=== PATIENT | male | born 1975 | race Caucasian/White ===

== ENCOUNTER 2022-09-17 11:25 | Outpatient (REF) | payer BC, MEDICARE, SELFPAY ==
[2022-09-17 13:24] LABS: MANUAL DIFF FLAG NO
[2022-09-17 13:57] LABS: Basophils Percent Auto 0.3 % (0-2); Eosinophils Absolute Auto 0.3 X10*3/uL (0.0-0.4); Eosinophils Percent Auto 2.6 % (0-4); Hematocrit 43.1 % (42.0-52.0); Hemoglobin 15.5 g/dl (14.0-18.0); Imm Gran Abs Auto 0.06 X10*3/uL (0.00-0.03); Imm Gran Pct Auto 0.6 % (0.0-0.4); Lymphocytes Absolute Auto 2.4 X10*3/uL (1.2-4.9); Mean Corpuscular Hemoglobin 33.1 pg (27.0-33.0); Mean Corpuscular Volume 92.1 fL (80.0-98.0); Mean Platelet Volume 11.9 fL (9.4-12.4); Monocytes Absolute Auto 0.7 X10*3/uL (0.1-1.2); Monocytes Percent Auto 7.1 % (2-11); Neutrophils Absolute Auto 6.4 x10*3/uL (2.0-8.3); Neutrophils Percent Auto 65.4 % (45-73); Platelet Count 152 X10*3/uL (160-400); Red Blood Count 4.68 X10*6/uL (4.60-5.80); Red Cell Distribution Width 13.5 % (11.0-16.0); White Blood Count 9.8 X10*3/uL (4.8-10.8)
[2022-09-17 14:05] LABS: Estimated Average Glucose 94 mg/dL; Hemoglobin A1c % 4.9 %
[2022-09-17 14:37] LABS: Vitamin B12 658 pg/mL (200-900)
[2022-09-17 14:43] LABS: Alanine Aminotransferase 17 U/L (0-40); Albumin Level 4.2 g/dL (3.5-5.0); Alkaline Phosphatase 74 U/L (39-117); Anion Gap 11 (12-20); Aspartate Amino Transferase 22 U/L (5-37); Bilirubin Direct 0.4 mg/dL (0.0-0.5); Bilirubin Total 1.4 mg/dL (0.0-1.0); Blood Urea Nitrogen 10 mg/dL (9-16); Calcium 9.1 mg/dL (8.4-10.2); Carbon Dioxide 27 mmol/L (22-29); Chloride 110 mmol/L (96-108); Cholesterol 216 mg/dL; Estimated Glomerular Filt Rate > 60; Glucose Random 85 mg/dL (60-115); HDL Cholesterol 48 mg/dL; LDL Cholesterol Calculated 139 mg/dl; Potassium 3.6 mmol/L (3.3-5.1); Sodium 144 mmol/L (135-145); Total Protein 7.3 g/dL (6.5-8.0); Triglycerides 147 mg/dL
[2022-09-17 15:22] LABS: CT PCR NOT DETECTED (Not Detect.); NG PCR NOT DETECTED (Not Detect.)
[2022-09-18 04:00] LABS: Syphilis Screen Nonreactive (Nonreactive)
[2022-09-18 04:30] LABS: HBc Num1 0.07 S/CO (0.00-0.79); HBsAGNum1 0.43 S/CO (0.00-0.99); HIV AB/AG Nonreactive (Nonreactive); HIV Num 1 0.04 S/CO (0.00-0.99); Hepatitis B Core Antibody Nonreactive (Nonreactive); Hepatitis B Surface Antigen Negative (Negative); ~HepC Num1 0.12 S/CO (0.00-0.79); ~Hepatitis C Antibody Nonreactive (Nonreactive)
== END 2022-09-17 11:26 | disposition home or self-care (01) ==
LOC: HO.HHCL 11:25
PROVIDERS: Visit Provider Internal Medicine
DX: Z00.00 Encounter for general adult medical examination without abnormal findings (principal); Z11.4 Encounter for screening for human immunodeficiency virus [HIV]; K92.1 Melena; Z20.2 Contact with and (suspected) exposure to infections with a predominantly sexual mode of transmission
CPT/HCPCS: 0353U; 80048; 80061; 80076; 82607; 83036; 84443; 85025; 86704; 86780; 86803; 87340; 87389

== ENCOUNTER 2023-01-21 12:02 | Outpatient (AMB) | payer BC, MEDICARE, SELFPAY ==
--- NOTE | 2023-01-21 12:06 | A.OFFVIS_ITS ---
Intake Vital Signs 01/21/23 12:11 Height 5 ft 7 in Weight 136 lb BMI 21.3 BP 118/65 Blood Pressure Location Lt brachial Position Sitting Pulse 87 Intake Visit Reasons: Colonoscopy Screening, blood in stool Intake Note: Patient new consult for 1st pre colonoscopy screening/ Positive cologuard 2020. Patient denies any GI issues. 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 He has intermittent BRBPR when he wipes He has an excellent appetite- No cardiac or respiratory issues No nausea, vomiting, hematemesis, fever or chills PFSH Family History Mother Diabetes Father No problems noted. Social History (Updated 01/21/23 @ 12:28 by Mahsa Stone PA-C) Household Members: Family Alcohol intake: current Alcohol intake frequency: holidays/special occasions only Patient Tobacco Use Status: Current everyday Tobacco user Use of substances other than those prescribed or required for medical reasons: Yes Substance Use Type: Marijuana Current occupational status: employed Current occupation: FT Review of Systems Const All systems reviewed & are unremarkable except as noted in HPI and below Card Denies chest pain and Denies dyspnea Resp Denies dyspnea GI Denies abdominal pain, Denies change in bowel habits, Denies heartburn, Denies nausea and Reports other (Bright red blood TP when wiping) Physical Exam Vital Signs: Last Vital Signs Pulse 87 01/21/23 12:11 BP 118/65 01/21/23 12:11 BMI result Body Mass Index 21.3 Const General: cooperative and comfortable Nutritional Appearance: thin Orientation/consciousness: patient oriented x3 Limitations: no limitations Eyes Sclerae: sclerae normal Resp Effort & Inspection: normal respiratory effort and able to speak in complete sentences Auscultation: clear to auscultation bilaterally, no rales, no rhonchi and no wheezes Cardio Rate: regular rate Rhythm: regular rhythm Heart sounds: S1 normal heart sound present and S2 normal heart sound present GI Palpation (GI): Soft to palpation and nontender Auscultation: normal bowel sounds Skin General skin exam: no rashes or lesions noted Neuro General: patient oriented x3 Extrem General: Yes full ROM Psych Appearance: grossly normal and well kempt Mental Status: mental status grossly normal Speech and movement: Normal speech and movement present Affect: normal affect Attitude: cooperative Thought process: Normal thought process present Thought content: Normal thought content present Results Reviewed Results Reviewed: no anemia Assessment & Plan Assessment & Plan (1) Encounter for screening colonoscopy: Comment: Discussed procedure, risks, need for escorted due to anesthesia Code(s): Z12.11 - Encounter for screening for malignant neoplasm of colon Plan: index screening colonoscopy (2) Rectal bleeding: Comment: intermittent- no anemia-likely hemorrhoidal Code(s): K62.5 - Hemorrhage of anus and rectum Plan: HFD Rectal cream Plan index screening colonoscopy MG prep, HFD- fiber supplements Orders: Orders Colonoscopy - GI Use Only 01/21/23 Z12.11 - Encounter for screening for malignant neoplasm of colon Medications: New polyethylene glycol 3350 (Miralax) Take as directed by mouth the day before your procedure. 238 grams PO ONCE 1 day PRN 238 grams 0RF laxative effect calcium polycarbophil (Fiber Laxative (calcium polycarbophil)) 1,250 mg (2 x 625 mg) PO DAILY 30 days 60 tabs 3RF bisacodyl (Dulcolax (bisacodyl)) Day before procedure, prep day Take 4 tablets by mouth upon awakening followed by large glass of water 20 mg (4 x 5 mg) PO ONCE 1 day 4 tabs 0RF colonoscopy prep Z12.11 - Encounter for screening for malignant neoplasm of colon hydrocortisone 2.5% (Proctosol HC) 1 appl IA BEDTIME PRN 30 grams 3RF hemorrhoids Patient Instructions: index screening colonoscopy MG prep, reviewed, literature given Maintain HFD- fiber supplements Hydrocortisone cream Avoid straining Encouraged to call with questions or concerns Coding Level of Care Code New Pt Level 3 (85746) Diagnoses Encounter for screening colonoscopy Z12.11 Rectal bleeding K62.5 Time Spent (min) 30
[2023-01-21 12:11] VITALS: BP 118/65; PULSE 87; BMI 21.3
== END 2023-01-21 13:21 | disposition home or self-care (01) ==
PROVIDERS: Visit Provider Physician Assistant
DX: Z01.818 Encounter for other preprocedural examination (principal); Z12.11 Encounter for screening for malignant neoplasm of colon; K62.5 Hemorrhage of anus and rectum
CPT/HCPCS: S0285

== ENCOUNTER → 2023-01-21 12:02 | Outpatient (BNVA) | payer BC, MEDICARE, SELFPAY | PROVIDERS: Visit Provider Physician Assistant ==

== ENCOUNTER 2023-05-30 11:27 | Day surgery (SDC) | payer BC, SELFPAY ==
[2023-05-30] VITALS (12 sets, daily range): BP systolic 80–124; BP diastolic 43–68; PULSE 46–62; RESP 16–20; TEMP 36.3–36.8; O2SAT 96–100; BMI 20.5
[2023-05-30] MEDS: Lactated Ringers 1,000 ML 50 ML IVCONT (12:05)
--- NOTE | 2023-05-30 12:05 | MHC.SHP ---
Pre-Procedural Eval Section A - 24 Hr Update-Section A only Date of Service: 05/30/23 The patient is an INPATIENT: No The patient has been examined within 24 hours of the surgical procedure. The History & Physical has been completed within 30 days and I have reviewed it.: No Section B - Complete if H&P > 30 days Chief Complaint: Colon cancer screening, rectal bleeding Relevant Family History (Specify if Yes): No Relevant Social History: Tobacco Use Present Medications: see Short Stay Collaborative assessment Medical History: No relevant PMH History of Previous Operations: Relevant previous surgery/procedure and date(s) (Lt ankle surgery) Allergies: Allergies Allergy/AdvReac Type Severity Reaction Status Date / Time No Known Allergies Allergy Verified 01/21/23 12:05 Review of Systems Sugical H&P ROS: Negative: Constitution, Cardiovascular and Gastrointestinal Exam Surgical H&P Exam: Normal: Heart, Normal: Lungs, Normal: Extremities and Normal: Abdomen Plan Diagnosis/Plan: Unchanged I have reviewed the history and physical and performed a pertinent physical examination on my patient. No changes have occurred unless specified. Time Spent With Patient Time: Total time managing care of this patient today ____ minutes.
--- NOTE | 2023-05-30 12:38 | P.CONAN_ITS ---
HPI - Anesthesia Eval Consult details Narrative: for colon screen PMF Active Problems Active Problems: All Active Problems Rectal bleeding (Acute) Encounter for screening colonoscopy (Acute) Family History Family History Mother Diabetes Father No problems noted. Family history of problems with anesthesia: No Surgical History History of Problems with Anesthesia: No Social History Social History Household Members: Family Alcohol intake: current Alcohol intake frequency: holidays/special occasions only Patient Tobacco Use Status: Current everyday Tobacco user Tobacco use type: Cigarette Cigarettes Per Day: 5 Use of substances other than those prescribed or required for medical reasons: Yes Substance Use Type: Marijuana Are you DNR?: No Advance Directives: No Advance Directives Information Provided: Yes Current occupational status: employed Current occupation: FT [employer] Allergies Allergy/AdvReac Type Severity Reaction Status Date / Time No Known Allergies Allergy Verified 01/21/23 12:05 Active Medications: Current Medications Lactated Ringer's (Lr) 1,000 mls @ 50 mls/hr IVCONT .Q20H DEXTER Last Admin: 05/30/23 12:05 Dose: 50 mls/hr Exam Height,Weight and Vital Signs: Height 5 ft 7 in Weight 59.33 kg Last Vital Signs Temp 98.2 F 05/30/23 11:46 Pulse 58 05/30/23 11:46 Resp 18 05/30/23 11:46 BP 124/68 05/30/23 11:46 Pulse Ox 98 05/30/23 11:46 O2 Del Method Room Air 05/30/23 11:46 Airway Mallampati Class: II TM Dist: >3cm Neck ROM: Full Heart: rrr Lungs: cta Assessment and Plan Assessment Anesthesia Assessment: Anesthesia Plan Discussed and Chart Reviewed Final Anesthetic Review Family History of Problems with Anesthesia: No History of Problems with Anesthesia: No NPO: Yes ASA Class: II (isabellehuana daily smoker) Final Preanesthetic Review: No Changes in Pt Med Stat, Meds/Allgs Chart Rev iewed, Consent Obtained/Reviewed and Anes Risks/Benef Reviewed Patient Risk: Low Procedure Risk: Low Anesthetic Plan Anesthetic Plan: MAC: Disposition: Standard PACU
--- NOTE | 2023-05-30 13:19 | P.OP_ITS ---
Operative Note Operative Note Date of Service: 05/30/23 Narrative: COLONOSCOPY TILL CECUM WITH BIOPSIES, SNARE POLYPECTOMY, SUBMUCOSAL INJECTION AND HEMOCLIP PLACEMENT Pre-op diagnosis: Colon cancer screening (First colonoscopy). Post-op diagnosis:? Colon polyps, Diverticulosis, hemorrhoids Endoscopist:? Jayne Al MD Anesthesia:?MAC Consent: Indications for the procedure and potential complications of bleeding, perforation, reaction to medications and missed diagnosis were discussed with the patient and informed consent was obtained. Instrument: Olympus CF H 190 L variable stiffness adult colonoscope Monitoring: Vital signs and clinical assessment, intermittent blood pressure monitoring, continuous EKG monitoring, Pulse oximetry and Carbon Dioxide monitoring were done throughout the procedure. Please see anesthesia flowsheet. Colon withdrawl time was 25 minutes. Procedure: The patient was placed in the left lateral decubitis position and pre-procedure medications were administered. After a digital rectal examination of the ano-rectum, the video colonoscope was inserted into the rectum and advanced through the colon to the cecum. The colonoscope was slowly withdrawn in a retrograde panoramic fashion and the colon mucosa was carefully examined including a retroflexed view of the rectum. Findings and interventions are described below. Procedure Difficulty: without difficulty Findings: Terminal Ileum: Not evaluated Cecum: Normal Ascending Colon: Normal Transverse Colon: A 3-4 mm sessile polyp - removed with a cold biopsy Descending Colon: Normal Sigmoid Colon: A 2 x 2.5 cms elongated and ulcerated polyp with a broad base at 25 cms. Polyp was removed with a hot snare. Polypectomy site was closed with 3 hemoclips and marked by Rhonda ink. Moderate diverticulosis Rectum: Two 10 - 15 mm sessile polyps - removed with a hot snare Ano-rectum: Small internal hemorrhoids Colon preparation: Excellent. [place] Bowel Preparation Scale Right colon; 3 Transverse colon: 3 Left colon; 3 (0 = Unprepared colon segment with mucosa not seen due to solid stool that cannot be cleared. 1 = Portion of mucosa of the colon segment seen, but other areas of the colon segment not well seen due to staining, residual stool and/or opaque liquid. 2 = Minor amount of residual staining, small fragments of stool and/or opaque liquid, but mucosa of colon segment seen well. 3 = Entire mucosa of colon segment seen well with no residual staining, small fragments of stool or opaque liquid) Impression and Post Procedure Diagnosis: Colonoscopy Findings: Three medium to large sized and one small polyps were removed Moderate diverticulosis seen in the sigmoid colon Small hemorrhoids on retroflexed exam. Rectal bleeding likely from large ulcerated sigmoid colon polyp. Plan: Pt has a FU appointment on 06/12/23 with [facility]. Repeat flexible sigmoidoscopy in 4-6 months if sigmoid colon polyp is adenomatous and 10 year if polyps are hyperplastic. Above findings were reviewed with the patient and relevant handouts were given and the discharge area.
== END 2023-05-30 16:12 | disposition home or self-care (01) ==
PROVIDERS: PCP Internal Medicine; Visit Provider Internal Medicine Gastroenterology
PROC: 0DJD8ZZ Inspection of Lower Intestinal Tract, Via Natural or Artificial Opening Endoscopic (ICD-10-PCS; CPT 45378; principal; 2023-05-30 13:00)
DX: Z12.11 Encounter for screening for malignant neoplasm of colon (principal); D12.5 Benign neoplasm of sigmoid colon; D12.8 Benign neoplasm of rectum; K63.5 Polyp of colon; K57.30 Diverticulosis of large intestine without perforation or abscess without bleeding; K64.8 Other hemorrhoids; F17.210 Nicotine dependence, cigarettes, uncomplicated
CPT/HCPCS: 45385; 45380; 45381; 88305; J2704

== ENCOUNTER → 2023-05-30 11:27 | Outpatient (BNV) | payer BC, SELFPAY | PROVIDERS: PCP Internal Medicine; Visit Provider Internal Medicine Gastroenterology | DX: Z12.11 Encounter for screening for malignant neoplasm of colon (principal); D12.3 Benign neoplasm of transverse colon; D12.5 Benign neoplasm of sigmoid colon; D12.8 Benign neoplasm of rectum; K57.30 Diverticulosis of large intestine without perforation or abscess without bleeding; K64.8 Other hemorrhoids | CPT/HCPCS: 45380; 45381; 45385 ==

== ENCOUNTER 2023-07-15 13:20 | Outpatient (AMB) | payer BC, MEDICARE, SELFPAY ==
[2023-07-15 13:31] VITALS: BP 112/73; PULSE 73; BMI 19.9
--- NOTE | 2023-07-15 13:31 | A.OFFVIS_ITS ---
Vital Signs 07/15/23 13:31 Height 5 ft 7 in Weight 127 lb BMI 19.9 BP 112/73 Blood Pressure Location Lt brachial Position Sitting Pulse 73 Intake Visit Reasons: s/p colon Intake Note: Patient follow up for Colonoscopy results Patient denies any GI issues. Manager Trading Required: No Accompanied by: Self / Same As Patient Allergies No Known Allergies Allergy (Verified 01/21/23 12:05) HPI Comments Details: A 47 y/o male seen with rectal bleeding- of referred for colonoscopy-today he is here to f/u after colonoscopy with polypectomy He tolerated well-he is very appreciative to the care that he received We reviewed procedure report, pathology and recommendation He had many questions in regard to polyps- His bowels are normal scant bleeding after wiping- Appetite is good He has no nausea, vomiting, hematemesis, fever or chills PFSH Surgical History (Updated 07/11/23 @ 08:55 by Linda Spaulding) Hx of colonoscopy Family History Mother Diabetes Father No problems noted. Social History Household Members: Family Alcohol intake: current Alcohol intake frequency: holidays/special occasions only Patient Tobacco Use Status: Current everyday Tobacco user Tobacco use type: Cigarette Cigarettes Per Day: 5 Substance Use Type: Marijuana Current occupational status: employed Current occupation: FT Review of Systems Const All systems reviewed & are unremarkable except as noted in HPI and below Physical Exam Vital Signs: Last Vital Signs Pulse 73 07/15/23 13:31 BP 112/73 07/15/23 13:31 BMI result Body Mass Index 19.9 Const General: cooperative, healthy appearing, comfortable, no acute distress and anxious Nutritional Appearance: thin Limitations: no limitations Eyes Sclerae: sclerae normal Resp Effort & Inspection: normal respiratory effort and able to speak in complete sentences Skin General skin exam: no rashes or lesions noted Extrem General: Yes full ROM Psych Appearance: grossly normal and well kempt Mental Status: mental status grossly normal Speech and movement: Normal speech and movement present and Clear speech present Affect: normal affect and Animated affect present Attitude: cooperative Thought process: Normal thought process present Thought content: Normal thought content present Insight: Good insight present (Psych) Judgement: Good judgement present (Psych) Results Reviewed Results Reviewed: Impression and Post Procedure Diagnosis: Colonoscopy Findings: Three medium to large sized and one small polyps were removed Moderate diverticulosis seen in the sigmoid colon Small hemorrhoids on retroflexed exam. Rectal bleeding likely from large ulcerated sigmoid colon polyp. Plan: Pt has a FU appointment on 06/12/23 with [facility]IL[facility]. Repeat flexible sigmoidoscopy in 4-6 months if sigmoid colon polyp is adenomatous and 10 year if polyps are hyperplastic. Above findings were reviewed with the patient and relevant handouts were given and the discharge area. Dictated By: Jayne Al MD Signed By: <Electronically signed by Jayne Al MD> 05/30/23 1554 me: Mynor Lou Age/Sex: 47/M Attending: Jayne Al MD : 1975 Submitted by: Jayne Al MD Copies to: Linda Juarez MD MR #: [id number] Status: [facility] Collected: 05/30/23 Location: [facility] Received: 05/30/23 Diagnosis A. Colon, transverse, polyp, biopsy: Colonic mucosa with no specific change; no adenomatous dysplasia seen. B. Colon, labeled sigmoid polyp at 25 mm : Tubular adenoma with foci suspicious for high-grade dysplasia (see comment). C. Colon, rectal polyp: Tubular adenoma; negative for high-grade dysplasia and carcinoma. Comment: (B): There is no invasion and this adenoma lacks metastatic potential. The margin cannot be evaluated and endoscopic follow-up to ensure there is no residual lesion is warranted. Clinical History Pre-Op Dx: Colon cancer screening, rectal bleeding Post-Op Dx: Diverticulosis, hemorrhoids, polyps Microscopic Description Microscopic sections reviewed. Material Received A. Transverse colon polyp bx B. Sigmoid polyp at 25 mm C. Rectal polyp Gross Description Received in 3 parts. Part A: Received in formalin labeled ?transverse colon polyp bx? is a 0.35 cm roldan rectangular tissue fragment, submitted in toto in a cassette labeled A. Part B: Received in formalin labeled ?sigmoid polyp at 25? is a 1.2 x 1.0 x 0.45 cm congested and hemorrhagic, lobular, red-maroon polypoid portion of tissue. The resected base is inked and the specimen sectioned and entirely submitted in a cassette labeled B. Part C: Received in formalin labeled ?rectal polyp x2 (sic)? are 4 roldan and roldan- pink papular and polypoid tissue fragments ranging from 0.35 to 0.8 cm in greatest dimension. The 3 smaller tissue fragments are submitted in toto in cassette C1. The resected base of the polypoid fragment is inked and the specimen Patient: Mynor Lou Age/Sex: 47/M MR#: [id number] Page 1 of 2 Assessment & Plan Assessment & Plan (1) Adenoma determined by colorectal biopsy: Comment: Sigmoid Colon: A 2 x 2.5 cms elongated and ulcerated polyp with a broad base at 25 cms. Polyp was removed with a hot snare. Polypectomy site was closed with 3 hemoclips and marked by Rhonda ink. Moderate diverticulosis Rectum: Two 10 - 15 mm sessile polyps - removed with a hot snare OB: 1975 Submitted by: Jayne Al MD Copies to: Linda Juarez MD MR #: [id number] Status: [facility] Collected: 05/30/23 Location: [facility] Received: 05/30/23 Diagnosis A. Colon, transverse, polyp, biopsy: Colonic mucosa with no specific change; no adenomatous dysplasia seen. B. Colon, labeled sigmoid polyp at 25 mm : Tubular adenoma with foci suspicious for high-grade dysplasia (see comment). C. Colon, rectal polyp: Tubular adenoma; negative for high-grade dysplasia and c arcinoma. Comment: (B): There is no invasion and this adenoma lacks metastatic potential. The margin cannot be evaluated and endoscopic follow-up to ensure there is no residual lesion is warranted. Clinical History Pre-Op Dx: Colon cancer screening, rectal bleeding Post-Op Dx: Diverticulosis, hemorrhoids, polyps Microscopic Description Microscopic sections reviewed. Material Received A. Transverse colon polyp bx B. Sigmoid polyp at 25 mm C. Rectal polyp Code(s): D12.7 - Benign neoplasm of rectosigmoid junction Category: Medical Plan: There is no invasion and this adenoma lacks metastatic potential. The margin cannot be evaluated and endoscopic follow-scheduled 12/05/23 (2) Diverticulosis: Code(s): K57.90 - Diverticulosis of intestine, part unspecified, without perforation or abscess without bleeding Category: Medical Plan: ER protocol Foods to avoid Maintain high-fiber diet (3) Hemorrhoids: Code(s): K64.9 - Unspecified hemorrhoids Category: Medical Plan: Avoid straining Plan Flex-sig as scheduled Plan of care in detail Patient Instructions: Very pleasant 39-year-old Gent follows up after screening colonoscopy for rectal bleeding Reviewed procedure report, pathology and recommendation Opportunity for questions answered to his satisfaction Flex sig 12/05/23-Dr. Al-prep sheet has been given Reinforced importance follow through-as well as AFDR-should begin screening by age 37 (typically 10 years from diagnoses)-to include his children and biologic siblings Discussed diverticulosis/diverticulitis ER protocol Foods to avoid-nuts, seeds and corn Maintain high-fiber diet Avoid straining with hemorrhoid He is encouraged to call with any questions or concerns Coding Level of Care Code Est Pt Level 3 (83053) Diagnoses Adenoma determined by colorectal biopsy D12.7 Diverticulosis K57.90 Hemorrhoids K64.9 Time Spent (min) 25
== END 2023-07-15 14:16 | disposition home or self-care (01) ==
PROVIDERS: Visit Provider Physician Assistant
DX: D12.7 Benign neoplasm of rectosigmoid junction (principal); K57.90 Diverticulosis of intestine, part unspecified, without perforation or abscess without bleeding; K64.9 Unspecified hemorrhoids
CPT/HCPCS: 99213

== ENCOUNTER → 2023-07-15 13:20 | Outpatient (BNVA) | payer BC, MEDICARE, SELFPAY | PROVIDERS: Visit Provider Physician Assistant ==

== ENCOUNTER 2023-10-08 16:35 | Outpatient (REF) | payer BC, MEDICARE, SELFPAY | END 2023-10-08 16:36 | disposition home or self-care (01) | LOC: HO.HOSX 16:35 | PROVIDERS: Visit Provider Orthopaedic Surgery | DX: Z13.89 Encounter for screening for other disorder (principal) ==

== ENCOUNTER 2024-05-07 10:58 | Outpatient (REF) | payer BC, SELFPAY ==
[2024-05-07 14:28] LABS: TSH reflex Free T4 2.01 uIU/mL (0.32-4.0)
== END 2024-05-07 10:59 | disposition home or self-care (01) ==
LOC: HO.HHCL 10:58
PROVIDERS: Visit Provider Internal Medicine
DX: R00.2 Palpitations (principal)
CPT/HCPCS: 36415; 84443

== ENCOUNTER 2024-05-25 11:04 | Outpatient (REF) | payer BC, SELFPAY ==
--- NOTE | ~2024-05-25 | XR_ITS ---
EXAMINATION: XR HAND 3 OR MORE VIEWS RIGHT HISTORY: M79.641 - Pain in right hand COMPARISON: There are no prior studies available for comparison. FINDINGS: Three views of the right hand are submitted. Osseous mineralization is normal. There is no fracture or dislocation. The joint spaces are preserved. The soft tissues are unremarkable. XR/XR hand RT min 3V IMPRESSION: Unremarkable examination of the right hand. Electronically signed by: Wayne Sawyer MD 05/25/2024 01:44 PM EDT
--- OUTSIDE RECORDS SUMMARY | 2024-05-25 14:20 | XMS_ITS | Clinical Summary ---
Author Organization [employer] Address [address] [facility] 7t [place] [address] Care Team Providers Care Street Worker Name Role Phone Linda Juarez MD Primary [...] organization. Date Type Department Care Team Description 05/25/2024 Orders Only [facility] External Provider, [facility] 05/17/2024 Telephone [facility] [place] [address] Linda Juarez MD Appointment Request 05/03/2024 11:15 AM EDT Telemedicine [address] [address] Linda Juarez MD Anxiety with depression (Primary Dx); Palpitations; Right hand pain; Positive colorectal cancer screening using Cologuard test 05/03/2024 Travel 04/29/2024 Telephone [facility] [place] [address] Linda Juarez MD Call Back Request (/) 03/04/2024 1:15 PM EST Office Visit [facility] [place] [address] Linda Juarez MD Anxiety with depression (Primary [...] Description 07/23/2024 9:45 AM EDT Office Visit [facility]IC[facility] [address] [place], [place] [phone] Jeevan Zapata MD [address] [place], [place] [phone] 09/13/2024 1:00 PM EDT Office Visit [facility] OPTOMETRY [address] [place] [address] Schuyler, Jeri, OD [address] [place], [place] [phone] Health Maintenance Due Date Last Done Comments CT Colonography 1974 Colonoscopy 1974 FIT 1974 Sigmoidoscopy 1974 Family Planning (PISQ) 1989 Hepatitis B Vaccines (1 of 3 - 19+ 3-dose series) 1993 Pneumococcal Vaccine: Pediatrics (0 to 5 Years) and At-Risk Patients (6 to 49) Years) (1 of 2 - PCV) 1993 FOBT 08/27/2022 08/27/2021, 07/0 09/2021, 07/31/2021, Additional history exists COVID-19 Vaccine (3 [...] Procedure Name Priority Date/Time Associated Diagnosis Comments XR HAND 3+ VIEWS RIGHT Routine 05/25/2024 11:40 AM EDT TSH W/REFLEX TO FT4 Routine 05/07/2024 1 1:00 AM EDT Palpitations HEPATITIS C ANTIBODY REFLEX Routine 09/17/2022 11:37 AM EDT HIV ANTIBODY/ANTIGEN ([place] DPH) Routine 09/17/2022 11:37 AM EDT LIPID PANEL, STANDARD Routine 09/17/2022 11:37 AM EDT Health care maintenance HM FIT DNA/COLOGUARD CANCER SCREENING Routine 08/27/2021 12:00 AM EDT from Last 3 Months or Most Recently Relevant to Health Maintenance Results * XR Hand 3+ Views Right (05/25/2024 11:40 AM EDT) Anatomical Region Laterality Modality Upper Extremities, Hand Right [facility] 05/25/2024 11:4 0 AM EDT Narrative 05/25/2024 1:47 PM EDT ? [facility] ? [address] ?[place] [address] ?XRay Report ? Signed ? Patient: Franquiz,Mynor ?MR#: [id number] ?? [id number] ? : 1975 ?Acct:[id number] ? Age/Sex: 48 / M ?ADM Date: 05/25/24 ? Loc: HO.HOSX ? Attending Dr: Shelia Baptiste MD ? Ordering Physician: Shelia Baptiste MD ?? Date of Service: 05/25/24 ?? Procedure(s): XR hand RT min 3V ?? Accession Number(s): [id number] ? cc: Linda Juarez MD; Shelia Baptiste MD ? EXAMINATION: ??XR HAND 3 OR MORE VIEWS RIGHT ? HISTORY: M79.641 - Pain in right hand ? COMPARISON: There are no prior studies available for comparison. ? FINDINGS: ? Three views of the right hand are submitted. ??Osseous mineralization is ?? normal. ??There is no fracture or dislocation. ??The joint spaces are ?? preserved. ??The soft tissues are unremarkable. ? XR/XR hand RT min 3V ?? IMPRESSION: ? Unremarkable examination of the right hand. ? Electronically signed by: ??Wayne Sawyer MD ??05/25/2024 01:44 PM EDT ?? RP ? Dictated By: ?Wayne Sawyer MD ? Signed By: ?<Electronically signed by Wayne Sawyer MD in OV> ?05/25/24 1344 ? DD/ 1140 ? TD/TT: 05/25/24 1144 ? Courier Delivery Driver: ? Procedure Note Alessio Hercules - 05/25/2024 [facility] [address] [place] [address] [address] [place] [address] XRay Report Signed Patient: Ni Lou#: [id number] : 1975Acct:[id number] Age/Sex: 48 / MADM Date: 05/25/24 Loc: [facility] Attending Dr: Shelia Baptiste MD Ordering Physician: Shelia Baptiste MD Date of Service: 05/25/24 Procedure(s): XR hand RT min 3V Accession Number(s): [id number] cc: Linda Juarez MD; Shelia Baptiste MD EXAMINATION: XR HAND 3 OR MORE VIEWS RIGHT HISTORY: M79.641 - Pain in right hand COMPARISON: There are no prior studies available for comparison. FINDINGS: Three views of the right hand are submitted. Osseous mineralization is normal. There is no fracture or dislocation. The joint spaces are preserved. The soft tissues are unremarkable. XR/XR hand RT min 3V IMPRESSION: Unremarkable examination of the right hand. Electronically signed by: Wayne Sawyer MD 05/25/2024 01:44 PM EDT Dictated By: Wayne Sawyer MD Signed By: <Electronically signed by Wayne Sawyer MD in OV> 05/25/24 1344 DD/ 1140 TD/TT: 05/25/24 1144 Courier Delivery Driver: [facility] External Provider IMG XR PROCEDURES Final Result * TSH W/Reflex to FT4 (05/07/2024 11:00 AM EDT) TSH reflex Free T4 2.01 0.32 - 4.0 uIU/mL [facility] Blood Venous blood specimen / Unknown 05/07/2024 11:00 AM EDT 05/07/2024 1:41 PM EDT Linda Hernández MD LAB BLOOD ORDERABLES Final Result Performing Organization Address [facility] Co de Phone Number [facility] [address] [place] [phone] * Hepatitis C Antibody Reflex (09/17/2022 11:37 AM EDT) Hepatitis C Antibody Nonreactive Nonreactive [facility] Comment:Antibodies to HCV no t detected; does not exclude early acuteHCV infection. 09/17/2022 11:3 7 AM EDT 09/17/2022 1:21 PM EDT Linda Hernández MD LAB BLOOD ORDERABLES Final Result [facility] [address] [place] [address] [phone] * HIV Ab/Ag (IRASEMA HARTMANN) (09/17/2022 11:37 AM EDT) HIV AB/AG Nonreactive Nonreactive [facility] Comment:HIV-1 p24 Ag and/or HIV-1/HIV-2 Ab not detected.A test result that is nonreactive does not exclude thepossibility of exposure to or infection with HIV-1 and/orHIV-2. Nonreactive results in this assay for individualswith prior exposure to HIV-1 and/or HIV-2 may be due toantigen and antibody levels that are below the limit ofdetection of this assay.The [employer] Scoop Driver HIV Ag/Ab Combo assay result andsupplemental assay results should be interpreted inconjunction with the patient's clinical presentation,history and other laboratory results. If the results areinconsistent with clinical evidence, additional testing issuggested to confirm the result. 09/17/2022 11:3 7 AM EDT 09/17/2022 1:21 PM EDT us Linda Hernández MD LAB BLOOD ORDERABLES Final Result [facility] [address] [place] [address] [phone] * Lipid Panel, Standard (09/17/2022 11:37 AM EDT) Triglycerides 147 mg/dL [facility] Comment:Desirable Triglyceri de: less than 150 mg/dLBorderline High Triglyceride 150-199 mg/dLHigh Triglyceride: 200-499 mg/dLVery High Triglyceride: greater than or equal to 5OO mg/dL Cholesterol 216 mg/dL [facility] Comment:Desirable Cholestero l: less than 200 mg/dLBorderline High Cholesterol: 200-239 mg/dLHigh Cholesterol: greater than 239 mg/dL LDL Cholesterol Calculated 139 mg/dl [facility] Comment:Desirable LDL: less than 100 mg/dLNear Optimal/Above Optimal LDL: 110- 129 mg/dLBorderline High LDL: 130-159 mg/dLHigh LDL: 160-189 mg/dLVery High LDL: greater than or equal to 190 mg/dL HDL Cholesterol 48 mg/dL [facility] Comment:Desirable HDL: great er than 40 mg/dL Note: This HDL assay may give artificially low results in patients with liver disease. Blood Venous blood specimen / Unknown 09/17/2022 11:37 AM EDT 09/17/2022 1:21 PM EDT us Linda Hernández MD LAB BLOOD ORDERABLES Final Result Performing Organization Address [facility] Co de Phone Number [facility] [address] [place] [address] [phone] * LAB COLOGUARD (08/27/2021 12:00 AM EDT) 08/27/2021 Narrative [facility] - 08/27/2021 12:00 AM EDT Refer to Fovea for result details Legacy Procedure: LAB COLOGUARD Procedure Note Provider, MD Asmita - 11/11/2022 Refer to Fovea for result details [facility] Procedure: LAB COLOGUARD us Historical Provider HEALTH MAINTENANCE Final Result Performing Organization Address [facility] Co de Phone Number [facility] Critical access hospital [address] from Last 3 Months or Most Recently Relevant to Health Maintenance Insurance [id number] PPO Care Teams Street Worker Relationship Specialty Start Date End Date Linda Juarez MD [address] [place] [address] PCP - General Internal Medicine 07/03/22
--- OUTSIDE RECORDS SUMMARY | 2024-05-25 14:20 | XMS_ITS | Encounter Summary ---
Author Organization [employer] Address [address] [facility] [address] 7t [place] [address] Care Team Providers Care Sales Program Coordinator Name Role Phone Linda Juarez MD Primary Care Provide r Encounter Details Date Type Department Care Team ([facility] st Contact Info) Description 05/25/2024 Orders Only [facility] External Provider, [facility] Social History Tobacco Use Types Packs/Day Years Used Date Smoking Tobacco: Every Day Cigarettes Passive Smoke Exposure: Current Smokeless Tobacco: Never Alcohol Use Standard Drinks/Week Comments Never 0 [...] PM EDT documented as of this encounter Plan of Treatment Upcoming Encounters Date Type Department Care Team (Late st Contact Info) Description 07/23/2024 9:45 AM EDT Office Visit [facility] MED[facility] [address] [place] [address] Jeevan Zapata MD [address] [place] [address] 09/13/2024 1:00 PM EDT Office Visit [facility] OPTOMETRY [address] [place] [address] Schuyler, Jeri, OD [address] [place] [address] documented as of this encounter Procedures Procedure Name Priority Date/Time Associated Diagnosis Comments XR HAND 3+ VIEWS RIGHT Routine 05/25/2024 11:40 AM EDT documented in this encounter Results * XR Hand 3+ Views Right (05/25/2024 11:40 AM EDT) Anatomical Region Laterality Modality Upper Extremities, Hand Right [facility] Imaging 05/25/2024 11:4 0 AM EDT Narrative 05/25/2024 1:47 PM EDT ? [facility] ? [address] ?[place] [address] ?XRay Report ? Signed ? Patient: Franqujosias,Mynor ?MR#: [id number] ?? [id number] ? : 1975 ?Acct:[id number] ? Age/Sex: 48 / M ?ADM Date: 04/15/25 ? Loc: HO.HOSX ? Attending Dr: Shelia Baptiste MD ? Ordering Physician: Shelia Baptitse MD ?? Date of Service: 05/25/24 ?? Procedure(s): XR hand RT min 3V ?? Accession Number(s): [id number] ? cc: Linda Juarez MD; Shelia Baptiste [...] DD/ 1140 ? TD/TT: 05/25/24 1144 ? Commercial Lines Account Manager: ? Procedure Note Alessio Hercules - 05/25/2024 [facility] [address] [place] [address] [address] [place] [address] XRay Report Signed Patient: Ni Lou#: [id number] : 1975Acct:[id number] Age/Sex: 48 / MADM Date: 05/25/24 Loc: HO.HOSX Attending Dr: Shelia Baptiste MD Ordering Physician: Shelia Baptiste MD Date of Service: 05/25/24 Procedure(s): XR hand RT min 3V Accession Number(s): [id number] cc: Linda Juarez MD; Shelia Baptsite MD EXAMINATION: XR HAND 3 OR MORE [...] 05/25/24 1344 DD/ 1140 TD/TT: 05/25/24 1144 Commercial Lines Account Manager: [facility] External Provider IMG XR PROCEDURES Final Result documented in this encounter Visit Diagnoses Not on filedocumented in this encounter Additional Health Concerns Assessment Noted Time PHQ-9 Depression Total Score: 0 03/04/19 25 1:14 PM EST documented as of this encounter Care Teams Sales Program Coordinator Relationship Specialty Start Date End Date Linda Juarez MD [address] [place] [address] PCP - General Internal Medicine 07/03/22 documented as of this encounter
--- OUTSIDE RECORDS SUMMARY | 2024-05-25 14:20 | XMS_ITS | Encounter Summary ---
Author Organization [employer] Address [address] [facility] 7t [place] [address] Care Team Providers Care Mental Health Director Name Role Phone Linda Juarez MD Primary Care Provide r Reason for Visit * Reason Onset Date Comments New patient Appt 07/03/2022 Encounter Details Date Type Department Care Team ([facility] st Contact Info) Description 07/03/[address] [facility] MEDICINE [address] [place] [address] Michelle Pelayo, DIRECTOR OF MUSIC THERAPY [address] [place] [address], [address] [place] [address] New patient Appt Social History Tobacco Use [...] pt giving a call back to offer DIRECTOR OF MUSIC THERAPY Appt. Pt demographics and insurance information were verified. Pt reports no medical conditions. Pt is not taking any medication at this time. Pt given DIRECTOR OF MUSIC THERAPY appt with on 08/20/[address] Mancera. Pt will be sent appt reminder card and medical release form and agrees to complete and to return to medical records prior to DIRECTOR OF MUSIC THERAPY appt. * Telephone Encounter - Yolandamarsiabeaudiana Eliud Camarena - 07/03/2022 9:48 AM EDT New Patients Par Akash Kline called (2x) to schedule New patient appt, pt did not answer left voicemail to give a call at [phone]. documented in this encounter Plan of Treatment Upcoming Encounters Date Type Department Care Team (Late st Contact Info) Description 07/23/2024 9:45 AM EDT Office Visit [facility] MEDICINE [address] [place] [address] Jeevan Zapata MD [address] [place] [address] 09/13/2024 1:00 PM EDT Office Visit [facility] OPTOMETRY [address] [place] [address] Schuyler, Jeri, OD [address] [place] [address] documented as of this encounter Visit Diagnoses Not on filedocumented in this encounter Care Teams Mental Health Director Relationship Specialty Start Date End Date Linda Juarez MD [address] [place] [address] PCP - General Internal Medicine 07/03/22 documented as of this encounter
== END 2024-05-25 11:05 | disposition home or self-care (01) ==
LOC: HO.HOSX 11:04
PROVIDERS: PCP Internal Medicine; Visit Provider Orthopaedic Surgery
DX: M79.641 Pain in right hand (principal)
CPT/HCPCS: 73130

== ENCOUNTER 2024-05-25 11:04 | Outpatient (AMB) | payer BC, SELFPAY ==
--- NOTE | 2024-05-25 11:21 | MHC.OFFVIS ---
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 States his right is currently worse. He is having pain in all his finger joints. There are days that his pain is severe and feels as if his fingers are going to snap/dislocate. Denies weakness, injury. He is also having random numbness and tingling daily. 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 He complains of pain in all finger joints of his bilateral hands, R>L. He says some days the pain is so severe he thinks his fingers will snap . He says his pain has been present for ~3 months now, and has been worsening recently. When asked about numbness, he reports only intermittent and occasional. He denies any prior injuries. He denies any locking or catching. He says he uses sand screener operator strengthening devices at home, which do not improve his pain. 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 He smokes cigarettes & Marijuana. [facility] Surgical History Hx of colonoscopy Family History Mother Diabetes Father No problems noted. 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 Review of Systems Const All systems reviewed & are unremarkable except as noted in HPI and below Physical Exam Vital Signs: BMI result Body Mass Index 19.9 Const General: cooperative, healthy appearing and no acute distress Orientation/consciousness: patient oriented x3 HEENT Head: Yes normocephalic and Yes atraumatic Eyes EOM: EOMs intact bilaterally Resp Effort & Inspection: normal respiratory effort and able to speak in complete sentences Cardio Jugular venous distension: no JVD Skin General skin exam: turgor normal Rashes: no rashes Neuro General: patient oriented x3 Extrem Other: Evaluation of Right Upper Extremity: The patient is alert, oriented, and in no acute distress Neuro: Median, Ulnar, Radial nerves motor and sensory intact and sensation is normal to the tips of all digits No thenar or intrinsic wasting Good APB muscle belly firing and good finger cross Vascular: Cap refill brisk ROM: He can make a fist and extend all his digits No locking or catching No a1 fili tenderness Skin: No lacerations or abrasions. General: No Ecchymosis. No Erythema or evidence of infection. Radiographs: 3 views of the right hand were taken and viewed by me today in clinic. They show no fractures, dislocations, or appreciable arthritic changes Psych Appearance: grossly normal Affect: normal affect Attitude: cooperative Assessment & Plan Assessment & Plan (1) Bilateral hand pain: Code(s): M79.641 - Pain in right hand; M79.642 - Pain in left hand Category: Medical Plan Assessment & Plan: 1. Right hand pain In all digits, mostly in the finger joints This is his primary complaint today 2. Left hand pain In all digits I educated him about this condition. It would appear the problem is heavy repetitive use manipulating these heavy chains daily at work. I recommend activity modification. I discussed activity modifications, he should limit any heavy lifting, gripping, or impact activities with his hand where possible. He should discontinue the use of his sand screener operator strengthening device. He should also try to modify his work activities where possible. 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 His job involves heavy pushing & lifting activities daily, as well as the operation of heavy machinery. I discussed the safe use of NSAIDs & Tylenol for pain relief He can follow up prn Scribed for Shelia Baptiste MD by Driss Polanco, biomedical equipment tech, on 05/25/24 at 11:55 AM, EST. Orders: Orders XR hand RT min 3V Today M79.641 - Pain in right hand Coding Level of Care Code New Pt Level 3 (86756) Diagnoses Bilateral hand pain M79.641; M79.642
[2024-05-25 11:22] VITALS: BMI 19.9
--- OUTSIDE RECORDS SUMMARY | 2024-05-25 13:35 | XMS_ITS | Encounter Summary ---
Author Organization [employer] Address [address] [facility] [address] [place] [address] Care Team Providers Care Inspector Publications Name Role Phone Linda Juarez MD Primary Care Provide r Reason for Visit * Reason Onset Date Comments New patient Appt 07/03/2022 Encounter Details Date Type Department Care Team ([facility] st Contact Info) Description 07/03/2022 Telephone [facility] [address] [place] [address] Michelle Pelayo, MACHINE CELL TUBER [address] [place] [address], [address] [place] [address] New patient Appt Social History Tobacco Use Types Packs/Day Years Used Date Smoking Tobacco: Never Assessed Sex and Gender Information Value Date Recorded Sex Assigned at Male 07/03/2022 12:36 PM EDT Legal Sex Male 7:49 PM EDT Gender Identity Male 07/03/2022 12:36 PM EDT Sexual Orientation Straight 12/07/2021 7: 49 PM EDT documented as of this encounter Miscellaneous Notes * Telephone Encounter - Akash Camarena - 07/03/2022 12:40 PM EDT Tc from pt giving a call back to offer MACHINE CELL TUBER Appt. Pt demographics and insurance information were verified. Pt reports no medical conditions. Pt is not taking any medication at this time. Pt given MACHINE CELL TUBER appt with on 08/20/[address] Mancera. Pt will be sent appt reminder card and medical release form and agrees to complete and to return to medical records prior to MACHINE CELL TUBER appt. * Telephone Encounter - Yolandamarisabeaudiana Eliud Camarena - 07/03/2022 9:48 AM EDT New Patients Par Akash Kline called (2x) to schedule New patient appt, pt did not answer left voicemail to give a call at [phone]. documented in this encounter Plan of Treatment Upcoming Encounters Date Type Department Care Team (Late st Contact Info) Description 07/23/2024 9:45 AM EDT Office Visit [facility] [address] [place] [address] Jeevan Zapata MD [address] [place] [address] 09/13/2024 1:00 PM EDT Office Visit [facility] [address] [place] [address] Schuyler, Jeri, OD [address] [place] [address] documented as of this encounter Visit Diagnoses Not on filedocumented in this encounter Care Teams Inspector Publications Relationship Specialty Start Date End Date Linda Juarez MD [address] [place] [address] PCP - General Internal Medicine 07/03/22 documented as of this encounter
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
== END 2024-05-25 12:25 | disposition home or self-care (01) ==
LOC: HO.HOS 11:04
PROVIDERS: PCP Internal Medicine; Visit Provider Orthopaedic Surgery
DX: M79.641 Pain in right hand (principal); M79.642 Pain in left hand
CPT/HCPCS: 99203

== ENCOUNTER → 2024-05-25 11:40 | Outpatient (BNV) | payer BC, SELFPAY | PROVIDERS: PCP Internal Medicine; Visit Provider Radiology Diagnostic Radiology | DX: M79.641 Pain in right hand (principal) | CPT/HCPCS: 73130 ==

== ENCOUNTER 2024-10-07 10:46 | Outpatient (AMB) | payer BC, SELFPAY ==
--- NOTE | 2024-10-07 10:50 | MHC.OFFVIS ---
Vital Signs 10/07/24 10:57 Height 5 ft 7 in Weight 120 lb BMI 18.8 BP 108/80 Blood Pressure Location Lt brachial Position Sitting Pulse 80 Pulse Source Pulse Oximeter Pulse Oximetry (%) 96 Oxygen Delivery Method Room Air Intake Visit Reasons: ASHLEY Pt. Overdue for repeat colo. Heavy rectal bleed Intake Note: New/Est pt for recall colo screening. CC; C/O intermittent episodes of blood clots per rectum. Pt states that he will sometimes see clumps of blood in the toilet when he has a BM that are approximately quarter sized. Also states that it appears to be dark red in color. No additional sx or concerns at this time per pt. Pants Closer Required: No Accompanied by: Self / Same As Patient Allergies No Known Allergies Allergy (Verified 10/07/24 10:51) HPI HPI ASHLEY Pt. Overdue for repeat colo. Heavy rectal bleed: Details: PMX Smoker Regimen with anxiety PANIC ATTACK Positive Cologuard Rectal bleeding * SURGICAl history rt ankle surgery s/p fx Colonoscopy * ALLERGIES NKDA * LABS no labs Assessment & Plan (1) Adenoma determined by colorectal biopsy: Comment: Sigmoid Colon: A 2 x 2.5 cms elongated and ulcerated polyp with a broad base at 25 cms. Polyp was removed with a hot snare. Polypectomy site was closed with 3 hemoclips and marked by Rhonda ink. Moderate diverticulosis Rectum: Two 10 - 15 mm sessile polyps - removed with a hot snare OB: 1975 Submitted by: Jayne Al MD Copies to: Linda Juarez MD MR #: [id number] Status: [facility] Collected: 05/30/23 Location: [facility] Received: 05/30/23 Diagnosis A. Colon, transverse, polyp, biopsy: Colonic mucosa with no specific change; no adenomatous dysplasia seen. B. Colon, labeled sigmoid polyp at 25 mm : Tubular adenoma with foci suspicious for high-grade dysplasia (see comment). C. Colon, rectal polyp: Tubular adenoma; negative for high-grade dysplasia and carcinoma. Comment: (B): There is no invasion and this adenoma lacks metastatic potential. The margin cannot be evaluated and endoscopic follow-up to ensure there is no residual lesion is warranted. Clinical History Pre-Op Dx: Colon cancer screening, rectal bleeding Post-Op Dx: Diverticulosis, hemorrhoids, polyps Microscopic Description Microscopic sections reviewed. Material Received A. Transverse colon polyp bx B. Sigmoid polyp at 25 mm C. Rectal polyp Code(s): D12.7 - Benign neoplasm of rectosigmoid junction Category: Medical Plan: There is no invasion and this adenoma lacks metastatic potential. The margin cannot be evaluated and endoscopic follow-scheduled 12/05/23 (2) Diverticulosis: Code(s): K57.90 - Diverticulosis of intestine, part unspecified, without perforation or abscess without bleeding Category: Medical Plan: ER protocol Foods to avoid Maintain high-fiber diet (3) Hemorrhoids: Code(s): K64.9 - Unspecified hemorrhoids Category: Medical Plan: Avoid straining Plan Flex-sig as scheduled Plan of care in detail Patient Instructions: Very pleasant 39-year-old Gent follows up after screening colonoscopy for rectal bleeding Reviewed procedure report, pathology and recommendation Opportunity for questions answered to his satisfaction Flex sig 12/05/23-Dr. Al-prep sheet has been given Reinforced importance follow through-as well as AFDR-should begin screening by age 37 (typically 10 years from diagnoses)-to include his children and biologic siblings Discussed diverticulosis/diverticulitis ER protocol Foods to avoid-nuts, seeds and corn Maintain high-fiber diet Avoid straining with hemorrhoid He is encouraged to call with any questions or concerns On 10/04/24 @ 12:07 Lisa Hsieh Wrote To Jayne Al telephone call x3 to patient, no answer - went to voicemail. I left message advising him to return call. Lisa Hsieh removed from item. On 10/04/24 @ 09:54 Lisa Hsieh Wrote To Jayne Al (2) telephone call to patient - no answer, left message advising call be returned. On 09/30/24 @ 18:05 Jayne Al Wrote To Jayne Al (2) Pt called to on rectal bleeding, [facility] advising patient to go to the ER for evaluation of rectal bleeding. Ewa! Can you try reaching out to him in the am. Thanks On 09/30/24 @ 14:46 Zane Johnson Wrote To ToddAndreina (2) Lorna, I will speak with one of the doctors and see if perhaps they can offer some insight. I just wasn't sure if he needed that sort of urgent screening. Dr. Al, you are oncall today and you are also the last Dr. to have performed his procedure. Do you mind offering some insight as to his situation and how we should proceed? Thank you in advance. On 09/30/24 @ 14:37 Andreina Brooks Wrote To Zane Johnson This does not make sense to me. What happened to the flex sig that he was supposed to have in August? Appears to have been canceled. If he is bleeding there is nothing I can do to stop that bleeding by seeing him. He really needs to go to the ER or we need to get that flex sig scheduled HERMINIA and I would suggest that we speak to Dr. Al about that or 1 of the other endoscopist. It is not then I mind seeing them, but really it is not going to help him by sitting and talking to meat. On 09/30/24 @ 14:30 Zane Johnson Wrote To ToddMay Pt is long overdue for his repeat sigmoid. Previously saw JM. Pt called and is reporting having heavy rectal bleeding. You have an opening that I have tentatively scheduled the pt for next week. Would you be OK with seeing this pt so that we might get him seen sooner rather than later? On 08/25/24 @ 11:33 Kathe Rolle Wrote To Kathe Rolle call to patient-lvm regarding flex sig on Wednesday 08/30. Reviewed needing transportation and prep -m/d. Reviewed CLD and prep. A nurse will call the day before to confirm arrival time. Call office at [phone] with pranav questions. On 08/10/24 @ 15:23 Kathe Rolle Wrote To Kathe Rolle Kathe Rolle completed item. On 08/10/24 @ 14:08 Kathe Rolle Wrote To Kathe Rolle Leanne - Nurse fro PCP office called- reports per Dr. Mancera patient should proceed with Sigmoidoscopy on 08/30 no contraindication. Does not need to see cardiology. On 08/10/24 @ 13:47 Kathe Rolle Wrote To Kathe Rolle nurse from PCP office left msg to call back- call to PCP office - nurse unavailable. will call me back On 08/10/24 @ 10:51 Kathe Rolle Wrote To Kathe Rolle call to PCP offic- spoke to Isidro, regarding sigmoidoscopy on 08/30 and cardiology referral /appt, msg sent to provider. On 08/09/24 @ 13:28 Kathe Rolle Wrote To Kathe Rolle call to PCP office - requested f/u appt - seen in April and June. hx of anxiety and palpitations, referral sent for cardiology regarding palpitations. Per workload msg 05/07/24 - patient declined cardiology stated his palpitations are better. On 04/30/24 @ 14:02 Kathe Rolle Wrote To Jonathan Schmidt noted Kathe Rolle removed from item. On 04/30/24 @ 13:20 Hoa Estes Wrote To Kathe Rolle (2) pt had to cancel because of work conflict, he has been r/s for 08/30/24 On 04/30/24 @ 13:09 Kathe Rolle Wrote To Kathe Rolel patient cx'd procedure per twin txt from Kathe Yee completed item. On 04/30/24 @ 09:47 Kathe Rolle Wrote To Kathe Rolle call to patient - lvm regarding flexible sig on Wednesday 05/03, reviewed needing transportation, and prep - miralax. Cld and prep reviewed. Call office at [phone] with any questions. On 04/29/24 @ 16:34 Kathe Rolle Wrote To Kathe Rolle noted On 04/29/24 @ 16:31 Estefany Lima Wrote To Kathe Rolle they just called back not sending note but they have no concerns On 04/29/24 @ 16:27 Estefany Lima Wrote To Kathe Rolle per pcp office no cardiac concerns will send written confirmation On 04/29/24 @ 08:17 Kathe Rolle Wrote To Kathe Rolle call to PCP office. regarding referral and procedure. On 11/03/23 @ 09:25 Kathe Rolle Wrote To Kathe Rolle Kathe Rolle completed item. On 11/03/23 @ 07:26 Shayy Smart Wrote To Kathe Rolle noted [facility] removed from item. On 10/31/23 @ 15:06 Corrie Pineda Wrote To Kathe Rolle (2) Patient called no answer. This call was the 1-month prior touch point for GI procedure. Voicemail left to call back to review upcoming procedure. TODAY'S VISIT [facility] Medical History Diverticulosis Adenoma determined by colorectal biopsy Encounter for screening colonoscopy Smoker Surgical History Hx of colonoscopy Family History Mother Diabetes Father No problems noted. 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 Review of Systems Const Denies fatigue, Denies fever(s), Denies night sweats, Denies poor appetite and Reports weight loss (7 LBS UNINTENDED) ENT Reports Normal hearing present, Denies dental pain, Denies dysphagia, Denies hearing loss, Denies mouth pain, Denies odynophagia, Denies throat swelling, Denies tongue swelling and Reports other (Dentition adequate) Card Reports no additional complaints Resp Reports no additional complaints GI Details: Denies abdominal pain, Denies melena, Denies bloating, Reports hematochezia, Denies constipation, Denies GI cramping, Denies dysphagia, Denies excessive flatus, Denies early satiety, Denies heartburn, Denies diarrhea, Denies nausea, Denies odynophagia, Denies vomiting and Denies hematemesis Skin/Breast Denies pruritus, Denies lesions, Denies rash and Denies jaundice Neuro Reports Normal hearing present and Denies Abnormal speech present Endo Denies fatigue Aller/Immun Denies throat swelling and Denies tongue swelling Physical Exam Vital Signs: Last Vital Signs Pulse 80 10/07/24 10:57 BP 108/80 10/07/24 10:57 Pulse Ox 96 10/07/24 10:57 Oxygen Delivery Method Room Air 10/07/24 10:57 BMI result Body Mass Index 18.8 Const General: cooperative, no acute distress, well developed and well groomed Nutritional Appearance: well nourished and thin Orientation/consciousness: oriented to person, oriented to place and oriented to time Limitations: No language barrier HEENT Head: Yes normocephalic and Yes atraumatic Eyes General: appearance normal, both eyes and all related structures Pupils: Equal, round and reactive pupils present Neck Neck: Yes normal visual inspection and Yes no lymphadenopathy Thyroid: Thyroid normal Resp Effort & Inspection: normal respiratory effort and able to speak in complete sentences Auscultation: clear to auscultation bilaterally Cardio Rate: regular rate Rhythm: regular rhythm Heart sounds: Normal, physiologic split S2 sound present Peripheral pulses: radial pulses present and posterior tibial pulses present GI Inspection: No distended and No Abdominal panniculus present Palpation (GI): Soft to palpation, nontender, no guarding, not rigid and No hepatosplenomegaly present Percussion: Yes normal to percussion Auscultation: normal bowel sounds Rectal Exam - Male: Yes deferred Skin General skin exam: no rashes or lesions noted, turgor normal, skin not dry, no jaundice, No spider nevi and no striae Rashes: no rashes Nails: normal Neuro General: oriented to person, oriented to place and oriented to time Cranial nerves: Yes Equal, round and reactive pupils present and Yes Normal hearing present Speech: No Abnormal speech present Extrem General: Yes normal to inspection, No clubbing, No cyanosis and No edema Psych Appearance: grossly normal and well kempt Mental Status: mental status grossly normal Speech and movement: Normal speech and movement present Affect: normal affect Attitude: cooperative Thought process: Normal thought process present and not confabulating Thought content: Normal thought content present Insight: Limited insight present (Psych) Judgement: Limited judgement present (Psych) Results Reviewed Results Reviewed: 2022 COLONOSCOPY Sigmoid Colon: A 2 x 2.5 cms elongated and ulcerated polyp with a broad base at 25 cms. Polyp was removed with a hot snare. Polypectomy site was closed with 3 hemoclips and marked by Rhonda ink. Moderate diverticulosis Rectum: Two 10 - 15 mm sessile polyps - removed with a hot snare OB: 1975 Submitted by: Jayne Al MD Copies to: Linda Juarez MD MR #: [id number] Status: [facility] Collected: 05/30/23 Location: [facility] Received: 05/30/23 Diagnosis A. Colon, transverse, polyp, biopsy: Colonic mucosa with no specific change; no adenomatous dysplasia seen. B. Colon, labeled sigmoid polyp at 25 mm : Tubular adenoma with foci suspicious for high-grade dysplasia (see comment). C. Colon, rectal polyp: Tubular adenoma; negative for high-grade dysplasia and carcinoma. Comment: (B): There is no invasion and this adenoma lacks metastatic potential. The margin cannot be evaluated and endoscopic follow-up to ensure there is no residual lesion is warranted. Clinical History Pre-Op Dx: Colon cancer screening, rectal bleeding Post-Op Dx: Diverticulosis, hemorrhoids, polyps Microscopic Description Microscopic sections reviewed. Material Received A. Transverse colon polyp bx B. Sigmoid polyp at 25 mm C. Rectal polyp Code(s): D12.7 - Benign neoplasm of rectosigmoid junction Category: Medical Plan: There is no invasion and this adenoma lacks metastatic potential. The margin cannot be evaluated and endoscopic follow-scheduled 12/05/23 Assessment & Plan Assessment & Plan (1) Pre-op examination: Code(s): Z01.818 - Encounter for other preprocedural examination Category: Medical (2) Dysplastic colon polyp: Comment: 05/2023 SCOPE= for TA is with 1 in the sigmoid area showing an area suspicious for focal dysplasia; was supposed to repeat with sigmoidoscopy in 4-6 months but this was not communicated well to the patient Code(s): K63.5 - Polyp of colon Category: Medical (3) Rectal bleeding: Comment: intermittent- no anemia-likely hemorrhoidal Code(s): K62.5 - Hemorrhage of anus and rectum Category: Medical Plan Patient seen in by Eleni Stone, who walked in our clinic saying he was having rectal bleeding. This is my 1st contact with the patient but it is concerning because after his 05/2023 scope he was to have a 4 to six-month repeat sigmoidoscopy that never happened. Fortunately he tells me his rectal bleeding is fairly scant. - The patient is a 49 year old male presenting with rectal bleeding. - Notices small dark red spots on the toilet tissue, approximately four to five episodes since last scope. Occasionally he will have rectal itching and I discussed the pathophysiology and treatment of hemorrhoids and should this return he can contact the office for hemorrhoid cream. - Previous colonoscopy: polyps found, one confirmed dysplastic. - Follow-up delayed due to work-related issues, beyond recommended six-month period. - No further active bleeding reported since last episode. - No notable family history of colonic malignancies. I explained to the patient the findings of previous endoscopic procedures indicating dysplastic polyps, emphasizing the necessity of an urgent colonoscopy given missed follow-up timelines. The patient was informed about the risks of delaying further evaluation in the context of potential malignancy. We discussed necessary preoperative blood testing and the logistics of scheduling the procedure, considering his work constraints. The patient was advised of the importance of timely intervention to prevent progression to colon cancer. Discussions also covered the influence of anxiety and stress, particularly tied to his work environment. He denies any cardiac or respiratory problems. There are no prior problems with anesthesia or sedation except that in childhood when he had his ankle repair he woke up crying and angry. There are no infectious disease problems. Again there is no known family history of colon cancer or polyps. Return office visit after his colonoscopy or sooner should his bleeding worsened Orders: Orders Complete Blood Count Auto Diff Today Z01.818 - Encounter for other preprocedural examination Colonoscopy - GI Use Only Today Z01.818 - Encounter for other preprocedural examination Comprehensive Met. Panel Today Z01.818 - Encounter for other preprocedural examination Coding Level of Care Code Est Pt Level 4 (30689) Diagnoses Pre-op examination Z01.818 Dysplastic colon polyp K63.5 Rectal bleeding K62.5 Time Spent (min) 38
[2024-10-07 10:57] VITALS: BP 108/80; PULSE 80; O2SAT 96; BMI 18.8
--- OUTSIDE RECORDS SUMMARY | 2024-10-07 12:12 | XMS_ITS | Encounter Summary ---
Author Organization [employer] Address [address] [place] [address] [address] [place] [address] Care Team Providers Care [employer] Business Manager Name Role Phone Linda Juarez MD Primary Care Provide r Reason for Visit * Reason Onset Date Comments New patient Appt 07/03/2022 Encounter Details Date Type Department Care Team ([facility] st Contact Info) Description 07/03/2022 Telephone [facility] MEDICINE [address] [place] [address] Michelle Pelayo NP New patient Appt Social History Tobacco Use [...] pt giving a call back to offer PRODUCT SUPPORT TECHNICIAN Appt. Pt demographics and insurance information were verified. Pt reports no medical conditions. Pt is not taking any medication at this time. Pt given PRODUCT SUPPORT TECHNICIAN appt with on 08/20/[address] Mancera. Pt will be sent appt reminder card and medical release form and agrees to complete and to return to medical records prior to PRODUCT SUPPORT TECHNICIAN appt. * Telephone Encounter - Akash Camarena - 07/03/2022 9:48 AM EDT New Patients Par Akash Kline called (2x) to schedule New patient appt, pt did not answer left voicemail to give a call at [phone]. documented in this encounter Plan of Treatment Upcoming Encounters Date Type Department Care Team (Late st Contact Info) Description 11/19/2024 11:30 AM EDT Office Visit [facility] MEDICINE [address] [place], [place] [phone] Jeevan Zapata MD [address] [place], [place] [phone] documented as of this encounter Visit Diagnoses Not on filedocumented in this encounter Care Teams [employer] Business Manager Relationship Specialty Start Date End Date Linda Juarez MD [address] [place], [place] [phone] PCP - General Internal Medicine 07/03/22 documented as of this encounter
--- OUTSIDE RECORDS SUMMARY | 2024-10-07 12:12 | XMS_ITS | Encounter Summary ---
Author Organization [employer] Address [address] [facility] [address] [place] [address] Care Team Providers Care Toll Bridge Attendant Name Role Phone Linda Juarez MD Primary Care Provide r Reason for Visit * Reason Onset Date Comments Med Refill 06/05/2024 Encounter Details Date Type Department Care Team ([facility] st Contact Info) Description 06/05/2024 Refill [facility] MEDICINE [address] [place] [address] Linda Juarez MD [address] [place] [address] Androgenic alopecia Social History Tobacco Use Types Packs/Day Years [...] Description 11/19/2024 11:30 AM EDT Office Visit [facility] MEDICINE [address] [place] [address] Jeevan Zapata MD [address] [place] [address] documented as of this encounter Visit Diagnoses Diagnosis Androgenic alopecia Other alopecia documented in this encounter Additional Health Concerns Assessment Noted Time PHQ-9 Depression Total Score: 0 03/04/19 25 1:14 PM EST documented as of this encounter Care Teams Toll Bridge Attendant Relationship Specialty Start Date End Date Linda Juarez MD [address] [place] [address] PCP - General Internal Medicine 07/03/22 documented as of this encounter
--- OUTSIDE RECORDS SUMMARY | 2024-10-07 12:12 | XMS_ITS | Clinical Summary ---
Author Organization [email or web address] Address [address] [facility] 7 [place] [address] Care Team Providers Care Distribution Center Supervisor Name Role Phone Linda Juarez MD Primary Care Provide r Allergies No known active allergies Medications * This document contains information received from the source organization and may not represent a complete record from that organization. minoxidil (Loniten) 2.5 MG tabletIndicati ons:Androgenic alopecia Take 2 tablets (5 mg) by mouth Once per day. 60 tablet 11 02/12/19 25 026 Active nicotine polacrilex (Nicorette) 4 MG gumIndications :Smoker CHEW 1 PIECE OF GUM EVERY 2 HOURS NEEDED FOR SMOKING CESSATION 100 each 2 02/17/19 25 Active ketoconazole (NIZOral) 2 % shampooIndicat ions:Androgeni c alopecia APPLY TO SCALP AND LEAVE ON FOR 5 MINUTES THEN RINSE OFF TWICE A WEEK 120 mL 1 09/28/19 25 Active ketoconazole (NIZOral) 2 % shampooIndicat ions:Androgeni c alopecia APPLY TO SCALP AND LEAVE ON FOR 5 MINUTES THEN RINSE OFF TWICE A WEEK 120 mL 1 12/15/19 24 025 Discontinued Active Problems Problem Noted Date Diagnosed Date [...] and therapist Health care maintenance 09/17/2022 Encounters Date Type Department Care Team Description 09/25/2024 Refill [facility] MEDICINE [address] [place] [address] Linda Juarez MD Androgenic alopecia 09/13/2024 1:00 PM EDT Office Visit [facility] OPTOMETRY [address] [place] [address] Schuyler, Jeri, OD Presbyopia (Primary Dx); Dry eyes; Left cornea scar 09/13/2024 Travel 08/10/2024 Telephone [facility] MEDICINE [address] [place] [address] Linda Juarez MD Appointments 07/23/2024 1:00 PM EDT Office Visit [facility] MED[facility]INE [address] [place], [place] [phone] Jeevan Zapata MD Androgenic alopecia (Primary Dx) 07/23/2024 Travel from Last 3 Months Immunizations Immunization Administration Dates Next Due Influenza injectable quadriv [...] Sign Reading Time Taken Comments Blood Pressure 128/70 07/23/2024 1:14 PM EDT Pulse 60 07/23/2024 1:14 PM EDT Temperature 36.2 C (97.1 F) 07/23/2024 1:14 PM EDT Respiratory Rate 18 07/23/2024 1:14 PM EDT Oxygen Saturation 97% 03/04/2024 1:13 PM EST Inhaled Oxygen Concentration - - Weight 56.1 kg (123 lb 9.6 oz) 07/23/2024 1:14 P M EDT Height 170.2 cm (5' 7 ) 07/23/2024 1:14 PM EDT Body Mass Index 19.36 07/23/2024 1:14 PM EDT Plan of Treatment Upcoming Encounters Date Type Department Care Team (Late st Contact Info) Description 11/19/2024 11:30 AM EDT Office Visit [facility] MED[facility]INE [address] [place] [address] Jeevan Zapata MD [address] [place] [address] Health Maintenance Due Date Last Done Comments CT Colonography 1974 FIT 1974 Sigmoidoscopy 1974 Disability Screening 1974 Family Planning (PISQ) 1989 Hepatitis B Vaccines (1 of 3 - 19+ 3-dose series) 1993 Pneumococcal Vaccine: 50+ Years (1 of 2 - PCV) 1993 FOBT 03/01/2020 03/01/2019 Colonoscopy 09/29/2023 05/30/2023 Colorectal Cancer Screening 09/29/2023 COVID-19 Vaccine (2023- season) 2023 07/11/2020, 06/15/2020 Zoster Vaccines (1 of 2) 2024 FIT DNA/Cologuard 08/27/2024 08/27/2021, , 07/31/2021, Additional history exists Influenza Vaccine (#1) 2024 , 03/03/2020, 03/03/2020, Additional history exists SDOH Screening 02/22/2025 02/23/2024 Alcohol/Substance Use Screening 03/04/2025 03/04/2024 Depression Screening 03/04/2025 03/04/2024, 03/04/19 Tobacco Screening 10/03/2025 10/03/2024 Lipid Panel 09/18/2027 09/17/2022, 05/31/2021 DTaP/Tdap/Td Vaccines (2 - Td or Tdap) 02/06/2033 02/06/2023 RSV Patients and Patients Aged 60 years or older (1 - 1-dose 75+ series) 2049 HIV Screening Completed 09/17/2022, 03/01/2019 Hepatitis C Screening Completed 09/17/2022, 022 HIB Vaccines Aged Out No longer eligi [...] patient's age to complete this topic Meningococcal B Vaccine Aged Out No l onger eligible based on patient's age to complete [...] Procedure Name Priority Date/Time Associated Diagnosis Comments COLONOSCOPY Routine 05/30/2023 HEPATITIS C ANTIBODY REFLEX Routine 09/17/2022 11:37 AM EDT HIV ANTIBODY/ANTIGEN ([place] [facility]) Routine 09/17/2022 11:37 AM EDT LIPID PANEL, STANDARD Routine 09/17/2022 11:37 AM EDT Health care maintenance FIT DNA/COLOGUARD CANCER SCREENING Routine 08/27/2021 12:00 AM EDT OCCULT BLOOD, FECAL, IMMUNOASSAY Routine 03/01/2019 12:00 PM EST from Last 3 Months or Most Recently Relevant to Health Maintenance Results * Colonoscopy (05/30/2023) Colonoscopy Normal Normal Narrative Lilli Bowman - 05/30/2023 You should undergo a Flexible sigmoidoscopy (left sided colonoscopy) again in 3- 4 months to fu on the large colon polyp. Asmita Provider HEALTH MAINTENANCE Final Result * Hepatitis C Antibody Reflex (09/17/2022 11:37 AM EDT) Hepatitis C Antibody Nonreactive Nonreactive [facility] Comment:Antibodies to HCV no t detected; does not exclude early acuteHCV infection. 09/17/2022 11:3 7 AM EDT 09/17/2022 1:21 PM EDT Linda Hernández MD LAB BLOOD ORDERABLES Final Result Performing Organization Address City/[facility]/ZIP Co de Phone Number [facility] [address] [place] [address] [phone] * HIV Ab/Ag (IRASEMA [facility]) (09/17/2022 11:37 AM EDT) HIV AB/AG Nonreactive Nonreactive [facility] Comment:HIV-1 p24 Ag and/or HIV-1/HIV-2 Ab not detected.A test result that is nonreactive does not exclude thepossibility of exposure to or infection with HIV-1 and/orHIV-2. Nonreactive results in this assay for individualswith prior exposure to HIV-1 and/or HIV-2 may be due toantigen and antibody levels that are below the limit ofdetection of this assay.The [employer] HIV Ag/Ab Combo assay result andsupplemental assay results should be interpreted inconjunction with the patient's clinical presentation,history and other laboratory results. If the results areinconsistent with clinical evidence, additional testing issuggested to confirm the result. 09/17/2022 11:3 7 AM EDT 09/17/2022 1:21 PM EDT us Linda Hernández MD LAB BLOOD ORDERABLES Final Result Performing Organization Address [facility]/ZIP Co de Phone Number [facility] [address] [place] [address] [phone] * Lipid Panel, Standard (09/17/2022 11:37 AM EDT) Triglycerides 147 mg/dL [facility] Comment:Desirable Triglyceri de: less than 150 mg/dLBorderline High Triglyceride 150-199 mg/dLHigh Triglyceride: 200-499 mg/dLVery High Triglyceride: greater than or equal to 5OO mg/dL Cholesterol 216 mg/dL [facility] Comment:Desirable Cholestero l: less than 200 mg/dLBorderline High Cholesterol: 200-239 mg/dLHigh Cholesterol: greater than 239 mg/dL LDL Cholesterol Calculated 139 mg/dl [facility] Comment:Desirable LDL: less than 100 mg/dLNear Optimal/Above Optimal LDL: 110- 129 mg/dLBorderline High LDL: 130-159 mg/dLHigh LDL: 160-189 mg/dLVery High LDL: greater than or equal to 190 mg/dL HDL Cholesterol 48 mg/dL [facility] Comment:Desirable HDL: great er than 40 mg/dL Note: This HDL assay may give artificially low results in patients with liver disease. Blood Venous blood specimen / Unknown 09/17/2022 11:37 AM EDT 09/17/2022 1:21 PM EDT us Linda Hernández MD LAB BLOOD ORDERABLES Final Result Performing Organization Address [facility] Co de Phone Number [facility] [address] [place] [address] [phone] * LAB COLOGUARD (08/27/2021 12:00 AM EDT) 08/27/2021 Narrative [facility] - 08/27/2021 12:00 AM EDT Refer to Xander for result details Legacy Procedure: LAB COLOGUARD Procedure Note Provider, MD Asmita - 11/11/2022 Refer to Xander for result details Legacy Procedure: LAB COLOGUARD us Historical Provider HEALTH MAINTENANCE Final Result Performing Organization Address [facility] Co de Phone Number [facility] [address] * Occult Bld Stl Ql Imm (03/01/2019 12:00 PM EST) Hemoccult Stl Ql IA Negative Negative [facility] 03/01/2019 12:0 0 PM EST us Historical Provider LAB BODY FLUIDS AND STOOL S ORDERABLES Final Result Performing Organization Address [facility] Co de Phone Number [facility] [address] from Last 3 Months or Most Recently Relevant to Health Maintenance Insurance [facility] PPO Care Teams Distribution Center Supervisor Relationship Specialty Start Date End Date Linda Juarez MD [address] [place] [address] PCP - General Internal Medicine 07/03/22
== END 2024-10-07 11:41 | disposition home or self-care (01) ==
LOC: HO.HGI 10:46
PROVIDERS: PCP Internal Medicine; Visit Provider Nurse Practitioner
DX: Z01.818 Encounter for other preprocedural examination (principal); Z12.11 Encounter for screening for malignant neoplasm of colon; Z86.0101 Personal history of adenomatous and serrated colon polyps; K62.5 Hemorrhage of anus and rectum
CPT/HCPCS: S0285

== ENCOUNTER 2024-10-29 12:21 | Day surgery (SDC) | payer BC, SELFPAY ==
--- OUTSIDE RECORDS SUMMARY | 2024-10-15 14:36 | XMS_ITS | Encounter Summary ---
Author Organization [employer] Address [address] [facility] [address] [place] [address] Care Team Providers Care Field Nurse Case Manager Name Role Phone Linda Juarez MD Primary Care Provide r Reason for Visit * Reason Onset Date Comments Med Refill 06/05/2024 Encounter Details Date Type Department Care Team ([facility] st Contact Info) Description 06/05/2024 Refill [facility] MEDICINE [address] [place] [address] Linda Juarez MD [address] [place] [address] Androgenic alopecia Social History Tobacco Use Types [...] Description 11/19/2024 11:30 AM EDT Office Visit [facility] MED[facility]INE [address] [place] [address] Jeevan Zapata MD [address] [place] [address] documented as of this encounter Visit Diagnoses Diagnosis Androgenic alopecia Other alopecia documented in this encounter Additional Health Concerns Assessment Noted Time PHQ-9 Depression Total Score: 0 03/04/19 25 1:14 PM EST documented as of this encounter Care Teams Field Nurse Case Manager Relationship Specialty Start Date End Date Linda Juarez MD [address] [place] [address] PCP - General Internal Medicine 07/03/22 documented as of this encounter
--- OUTSIDE RECORDS SUMMARY | 2024-10-15 14:36 | XMS_ITS | Clinical Summary ---
Author Organization [employer] Address [address] [facility] 7 [place] [address] Care Team Providers Care Computer Programming Professor Name Role Phone Linda Juarez MD Primary [...] Type Department Care Team Description 09/25/2024 Refill [facility] MEDICINE [address] [place] [address] Linda Juarez MD Androgenic alopecia 09/13/2024 1:00 PM EDT Office Visit [facility] OPTOMETRY [address] [place] [address] Schuyler, Jeri, OD Early cataracts, bilateral (Primary Dx); Presbyopia 09/13/2024 Travel 08/10/2024 Telephone [facility] MEDICINE [address] [place] [address] Linda Juarez MD Appointments 07/23/2024 1:00 PM EDT Office Visit [facility] MEDICINE [address] [place], [place] [phone] Jeevan Zapata MD Androgenic alopecia (Primary Dx) [...] is your housing situation today? I have amandayana romero 12/15/[address] you [...] Description 11/19/2024 11:30 AM EDT Office Visit [facility] MEDICINE [address] [place] [address] Jeevan Zapata MD [address] [place] [address] Health Maintenance Due Date Last Done Comments CT Colonography 1974 FIT 1974 Sigmoidoscopy 1974 Disability Screening 1974 Family Planning (PISQ) 1989 Hepatitis B Vaccines (1 of 3 - 19+ 3-dose series) 1993 Pneumococcal Vaccine: 50+ Years (1 of 2 - PCV) 1993 FOBT 08/27/2022 08/27/2021, 07/0 09/2021, 07/31/2021, Additional history exists Colonoscopy 09/29/2023 05/30/2023 Colorectal Cancer Screening 09/29/2023 Zoster Vaccines (1 of 2) 2024 FIT DNA/Cologuard 08/27/2024 08/27/2021, , 07/31/2021, Additional history exists COVID-19 Vaccine (2024- season) 2024 07/11/2020, 06/15/2020 Influenza Vaccine (#1) 2024 , 03/03/2020, 03/03/2020, Additional history exists SDOH Screening 02/22/2025 02/23/2024 Alcohol/Substance Use Screening 03/04/2025 03/04/2024 Depression Screening 03/04/2025 03/04/2024, 03/04/19 25 Tobacco Screening 10/03/2025 10/03/2024 Lipid Panel 09/18/2027 [...] to fu on the large colon polyp. [facility] Provider HEALTH MAINTENANCE Final Result * Hepatitis C Antibody Reflex (09/17/2022 11:37 AM EDT) Hepatitis C Antibody Nonreactive Nonreactive [facility] Comment:Antibodies to HCV no t detected; does not exclude early acuteHCV infection. 09/17/2022 11:3 7 AM EDT 09/17/2022 1:21 PM EDT Linda Hernández MD LAB BLOOD ORDERABLES Final Result [facility] [address] [place] [address] [phone] * HIV Ab/Ag (IRASEMA HARTMANN) (09/17/2022 11:37 AM EDT) HIV AB/AG Nonreactive Nonreactive [facility] Comment:HIV-1 p24 Ag and/or HIV-1/HIV-2 Ab not detected.A test result that is nonreactive does not exclude thepossibility of exposure to or infection with HIV-1 and/orHIV-2. Nonreactive results in this assay for individualswith prior exposure to HIV-1 and/or HIV-2 may be due toantigen and antibody levels that are below the limit ofdetection of this assay.The [employer] HIV Ag/Ab Combo assay result andsupplemental assay results should be interpreted inconjunction with the patient's clinical presentation,history and other laboratory results. If the results areinconsistent with clinical evidence, additional testing issuggested to confirm the result. 09/17/2022 11:3 7 AM EDT 09/17/2022 1:21 PM EDT us Linda Hernández MD LAB BLOOD ORDERABLES Final Result [facility] [address] [place] [address] [phone] * Lipid Panel, Standard (09/17/2022 11:37 AM EDT) Triglycerides 147 mg/dL [facility] Comment:Desirable Triglyceri de: less than 150 mg/dLBorderline High Triglyceride 150-199 mg/dLHigh Triglyceride: 200-499 mg/dLVery High Triglyceride: greater than or equal to 5OO mg/dL Cholesterol 216 mg/dL [facility] Comment:Desirable Cholestero l: less than 200 mg/dLBorderline High Cholesterol: 200-239 mg/dLHigh Cholesterol: greater than 239 mg/dL LDL Cholesterol Calculated 139 mg/dl [facility] Comment:Desirable LDL: less than 100 mg/dLNear Optimal/Above Optimal LDL: 110- 129 mg/dLBorderline High LDL: 130-159 mg/dLHigh LDL: 160-189 mg/dLVery High LDL: greater than or equal to 190 mg/dL HDL Cholesterol 48 mg/dL [facility] Comment:Desirable HDL: great er than 40 mg/dL Note: This HDL assay may give artificially low results in patients with liver disease. Blood Venous blood specimen / Unknown 09/17/2022 11:37 AM EDT 09/17/2022 1:21 PM EDT us Linda Hernández MD LAB BLOOD ORDERABLES Final Result Performing Organization Address [facility] Co de Phone Number [facility] [address] [place] [address] [phone] * LAB COLOGUARD (08/27/2021 12:00 AM EDT) 08/27/2021 Narrative [facility] - 08/27/2021 12:00 AM EDT Refer to Fovea for result details Legacy Procedure: LAB COLOGUARD Procedure Note Provider, MD Asmita - 11/11/2022 Refer to Fovea for result details [facility] Procedure: LAB COLOGUARD us Historical Provider HEALTH MAINTENANCE Final Result Performing Organization Address City/[facility] Co de Phone Number [facility] [address] from Last 3 Months or Most Recently Relevant to Health Maintenance Insurance [facility] PPO Care Teams Computer Programming Professor Relationship Specialty Start Date End Date Linda Juarez MD [address] [place] [address] PCP - General Internal Medicine 07/03/22
--- OUTSIDE RECORDS SUMMARY | 2024-10-15 14:36 | XMS_ITS | Encounter Summary ---
Author Organization [employer] Address [address] [place] [address] [address] [place] [address] Care Team Providers Care Prescription Eyeglass Maker Name Role Phone Linda Juarez MD Primary Care Provide r Reason for Visit * Reason Onset Date Comments New patient Appt 07/03/2022 Encounter Details Date Type Department Care Team ([facility] st Contact Info) Description 07/03/2022 Telephone [facility] MEDICINE [address] [place] [address] Michelle Pelayo NP New patient Appt Social [...] pt giving a call back to offer LENDING CONSULTANT Appt. Pt demographics and insurance information were verified. Pt reports no medical conditions. Pt is not taking any medication at this time. Pt given LENDING CONSULTANT appt with on 08/20/[address] Mancera. Pt will be sent appt reminder card and medical release form and agrees to complete and to return to medical records prior to LENDING CONSULTANT appt. * Telephone Encounter - Akash Camarena - 07/03/2022 9:48 AM EDT New Patients Par Akash Kline called (2x) to schedule New patient appt, pt did not answer left voicemail to give a call at [phone]. documented in this encounter Plan of Treatment Upcoming Encounters Date Type Department Care Team (Late st Contact Info) Description 11/19/2024 11:30 AM EDT Office Visit [facility] MEDIC[facility] [address] [place], [place] [phone] Jeevan Zapata MD [address] [place], [place] [phone] documented as of this encounter Visit Diagnoses Not on filedocumented in this encounter Care Teams Prescription Eyeglass Maker Relationship Specialty Start Date End Date Linda Juarez MD [address] [place], [place] [phone] PCP - General Internal Medicine 07/03/22 documented as of this encounter
[2024-10-27 09:19] VITALS: BMI 18.8
--- NOTE | 2024-10-27 12:26 | HO.ANESPROP2 ---
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 Family history of problems with anesthesia: No Surgical History Surgical History Hx of colonoscopy History of Problems with Anesthesia: No Social History Social History Household Members: Family Alcohol intake: current Alcohol intake frequency: holidays/special occasions only Patient Tobacco Use Status: Current everyday Tobacco user Tobacco use type: Cigarette Cigarettes Per Day: 5 Use of substances other than those prescribed or required for medical reasons: Yes Substance Use Type: Marijuana Advance Directives: No Advance Directives Information Provided: Yes Current occupational status: employed 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 Meds Allergies Allergy/AdvReac Type Severity Reaction Status Date / Time No Known Allergies Allergy Verified 10/07/24 10:51 Home Medications ?Medication ?Instructions ?Recorded ?Confirmed ?Last Taken ?Type ketoconazole 2 % shampoo topical 2XW 10/07/24 Unknown History minoxidil 2.5 mg tablet 2.5 mg PO BID 10/07/24 Unknown History Exam Height,Weight and Vital Signs: Height 5 ft 7 in Weight 54.431 kg Assessment and Plan Assessment Anesthesia Assessment: Chart Reviewed Final Anesthetic Review Family History of Problems with Anesthesia: No History of Problems with Anesthesia: No Documented by User: Tamara Ames MD 10/29/24 13:14 [facility] Past Medical History Medical History Diverticulosis Adenoma determined by colorectal biopsy Encounter for screening colonoscopy Smoker Family History Family History Mother Diabetes Father No problems noted. 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 Meds Allergies Allergy/AdvReac Type Severity Reaction Status Date / Time No Known Allergies Allergy Verified 10/07/24 10:51 Home Medications ?Medication ?Instructions ?Recorded ?Confirmed ?Last Taken ?Type ketoconazole 2 % shampoo topical 2XW 10/07/24 Unknown History minoxidil 2.5 mg tablet 2.5 mg PO BID 10/07/24 Unknown History Exam Airway Mallampati Class: II TM Dist: >3cm Neck ROM: Full Heart: rrr Lungs: cta Assessment and Plan Assessment Anesthesia Assessment: Anesthesia Plan Discussed Final Anesthetic Review NPO: Yes ASA Class: II Final Preanesthetic Review: No Changes in Pt Med Stat, Meds/Allgs Chart Reviewed, Consent Obtained/Reviewed and Anes Risks/Benef Reviewed Patient Risk: Low Procedure Risk: Low Anesthetic Plan Anesthetic Plan: MAC: Disposition: Standard PACU
[2024-10-29 12:37] VITALS: BMI 18.4
[2024-10-29 12:50] VITALS: BP 109/59; PULSE 60; RESP 16; TEMP 37; O2SAT 96
[2024-10-29] MEDS: Lactated Ringers 1,000 ML 100 ML IVCONT (12:50)
--- NOTE | 2024-10-29 13:34 | MHC.SHP ---
Pre-Procedural Eval Section A - 24 Hr Update-Section A only Date of Service: 10/29/24 The patient is an INPATIENT: No The patient has been examined within 24 hours of the surgical procedure. The History & Physical has been completed within 30 days and I have reviewed it.: Yes Section B - Complete if H&P > 30 days Chief Complaint: rectal bleeding,polyp of colon Allergies: Allergies Allergy/AdvReac Type Severity Reaction Status Date / Time No Known Allergies Allergy Verified 10/07/24 10:51 Plan Diagnosis/Plan: Unchanged I have reviewed the history and physical and performed a pertinent physical examination on my patient. No changes have occurred unless specified. Time Spent With Patient Time: Total time managing care of this patient today ____ minutes.
[2024-10-29 14:15] VITALS: BP 75/42; PULSE 78; RESP 16; TEMP 36.5; O2SAT 96
--- NOTE | 2024-10-29 14:16 | P.OPN-COLO_ITS ---
Colonoscopy Operative Note Operative Note Date of Service: 10/29/24 Narrative: Procedure: Colonoscopy Indication: Personal history of polyps, rectal bleeding Endoscopist: Felicitas Del Rosario MD Anesthesia Provider: Lisa Rodriguez CRNA Anesthesia type: MAC Instrument: Olympus [id number]-[id number] Consent: Indication, risks vs benefits, and alternatives were discussed with the patient who gave written informed consent to proceed. EKG, pulse, pulse oximetry and blood pressure were monitored throughout the procedure. Please see ricoorion [email or web address] flowsheet. Procedure: The patient was brought to the procedure room and placed in the left lateral decubitus position. IV medications were administered by the anesthesia provider in attendance. A digital rectal exam was performed which was normal. A distal attachment cap was affixed to the tip of the colonoscope which was then inserted through the anus and advanced through the colon to the cecum at 75 cm,and terminal ileum. Appendiceal orifice and ileocecal valve were identified. Mucosa was carefully examined under high definition white light as the instru ment was slowly withdrawn in a retrograde panoramic fashion. Retroflexion was performed in rectum. The procedure was not difficult. There were no immediate obvious complications. The quality of the prep was BBPS: 3+2+3 = adequate Withdrawal time 13 minutes. Limitations: No limitations. Findings: Mucosa: Normal to cecum and terminal ileum. A previously placed tattoo noted in sigmoid colon at 27 cm. There was a previous polypectomy scar in a star shaped convergence. No residual or recurrent polyp noted. Cold forceps biopsies were taken from the site of the scar. Protruding lesions: * 3 sessile polyp of size 2-4 mm in rectum. Cold forceps polypectomy was performed. The polyp was completely removed and retrieved. * Large internal hemorrhoids without stigmata of recent bleeding. Excavated lesions: * Mild to moderate diverticulosis of sigmoid colon. Impression: 1. Previous tattoo and polypectomy scar at 27 cm (biopsy) 2. Total of 3 polyps removed 3. Diverticulosis 4. External and internal hemorrhoids Recommendations: - Follow path results. - Repeat colonoscopy in 3 years due to hx of advanced adenoma in 2023.
[2024-10-29 14:27] VITALS: BP 96/59; PULSE 68; RESP 16; TEMP 36.4; O2SAT 98
== END 2024-10-29 15:12 | disposition home or self-care (01) ==
PROVIDERS: PCP Internal Medicine; Visit Provider Internal Medicine
PROC: 0DJD8ZZ Inspection of Lower Intestinal Tract, Via Natural or Artificial Opening Endoscopic (ICD-10-PCS; CPT 45378; principal; 2024-10-29 14:10)
DX: K62.5 Hemorrhage of anus and rectum (principal); Z86.0101 Personal history of adenomatous and serrated colon polyps; K63.5 Polyp of colon; K62.1 Rectal polyp; K57.30 Diverticulosis of large intestine without perforation or abscess without bleeding; K64.8 Other hemorrhoids; K64.4 Residual hemorrhoidal skin tags; F17.210 Nicotine dependence, cigarettes, uncomplicated
CPT/HCPCS: 45380; 88305; J2704

== ENCOUNTER → 2024-10-29 12:21 | Outpatient (BNV) | payer BC, SELFPAY | PROVIDERS: PCP Internal Medicine; Visit Provider Internal Medicine | DX: Z12.11 Encounter for screening for malignant neoplasm of colon (principal); K63.5 Polyp of colon; K64.8 Other hemorrhoids; Z86.0100 Personal history of colon polyps, unspecified | CPT/HCPCS: 45380 ==